=== PATIENT | male | born 1935 | race Caucasian/White ===

== ENCOUNTER 2017-11-07 10:41 | Emergency (ER) | payer OTHER, BC ==
[~2017-11-07] VITALS: Ht 190.5 cm; Wt 108.9 kg
[~2017-11-07 10:41] MED LIST: CRESTOR20 M1 PO; NOVOLOG100 U/ML SC; PLA75 PO; RAMIPRIL10 M1 PO
[2017-11-07 10:55] VITALS: BP 130/73; Ht 190.5 cm; Wt 108.9 kg
== END 2017-11-07 11:55 | disposition home or self-care (01) ==
LOC: ED 10:41
DX: M25.022 Hemarthrosis, left elbow (principal)
CPT/HCPCS: J2001

== ENCOUNTER 2018-01-08 09:42 | Emergency (ER) | payer OTHER, BC ==
[~2018-01-08] VITALS: Ht 190.5 cm; Wt 115.7 kg
[2018-01-08 10:01] VITALS: BP 193/67; Ht 190.5 cm; Wt 115.7 kg
== END 2018-01-08 11:56 | disposition home or self-care (01) ==
LOC: ED 09:42
DX: S93.401A Sprain of unspecified ligament of right ankle, initial encounter (principal); I10 Essential (primary) hypertension; E11.9 Type 2 diabetes mellitus without complications; X58.XXXA Exposure to other specified factors, initial encounter; Y93.89 Activity, other specified; Y92.89 Other specified places as the place of occurrence of the external cause; Y99.8 Other external cause status